=== PATIENT | female | born 1980 | race African-American/Black ===

== ENCOUNTER 2016-11-16 07:33 | Emergency (ER) | payer SELFPAY ==
[~2016-11-16] VITALS: Ht 165.1 cm; Wt 114.0 kg
[2016-11-16 07:45] VITALS: BP 140/76
== END 2016-11-16 08:32 | disposition home or self-care (01) ==
LOC: ER 07:33
DX: J02.9 Acute pharyngitis, unspecified (principal)
CPT/HCPCS: 99283

== ENCOUNTER 2017-12-19 03:21 | Emergency (ER) | payer SELFPAY ==
[~2017-12-19] VITALS: Ht 165.1 cm; Wt 116.0 kg
[2017-12-19 04:05] LABS: CLARITY URINE CLEAR (CLEAR); COLOR URINE DARK YELLOW (YELLOW); KETONES URINE TRACE (NEGATIVE); LEUKOCYTE ESTERASE URINE NEGATIVE (NEGATIVE); NITRITE URINE NEGATIVE (NEGATIVE); OCCULT BLOOD URINE NEGATIVE (NEGATIVE); PROTEIN URINE TRACE (NEGATIVE); SPECIFIC GRAVITY URINE 1.033 (1.005-1.030)
[2017-12-19] MEDS ORDERED: IBUPROFEN 800MG TABLET PO ONE (05:00)
[2017-12-19 06:13] VITALS: BP 137/91
== END 2017-12-19 06:17 | disposition home or self-care (01) ==
LOC: ER 03:21
DX: M25.551 Pain in right hip (principal); E66.9 Obesity, unspecified; Z68.41 Body mass index [BMI] 40.0-44.9, adult
CPT/HCPCS: 73502; 81003; 81025; 99285

== ENCOUNTER 2018-09-06 21:29 | Emergency (ER) | payer BC ==
[~2018-09-06] VITALS: Ht 165.1 cm; Wt 115.0 kg
[2018-09-07] MEDS ORDERED: LORAZEPAM 1MG TABLET PO ONE (01:45)
[2018-09-07 02:32] LABS: BASOPHILS % 0.9 % (0.0-2.0); EOSINOPHILS % 1.3 % (0.0-5.0); HEMATOCRIT. 35.8 % (36.0-48.0); HEMOGLOBIN. 11.9 g/dL (12.0-16.0); LYMPHOCYTES % 31.4 % (20.0-50.0); MEAN CORPUSCULAR HEMOGLOBIN 25.9 pg (28.0-32.0); MEAN CORPUSCULAR VOLUME 78.3 fL (81.0-99.0); MONOCYTES % 7.7 % (2.0-8.0); NEUTROPHILS % 58.7 % (40.0-76.0); PLATELET 241 x1000/uL (130-400); RED BLOOD CELL COUNT 4.57 mill/uL (4.2-5.4); RED CELL DISTRIBUTION WIDTH 18.4 % (11.6-14.6)
[2018-09-07 02:38] LABS: CHLORIDE 105 mEq/L (98-107)
[2018-09-07 04:24] VITALS: BP 120/85
== END 2018-09-07 04:27 | disposition home or self-care (01) ==
LOC: ER 22:56
DX: R00.2 Palpitations (principal); E66.9 Obesity, unspecified; Z68.41 Body mass index [BMI] 40.0-44.9, adult
CPT/HCPCS: 36415; 71045; 80048; 81025; 84443; 93005; 99284